=== PATIENT | female | born 1955 | race Caucasian/White ===

== ENCOUNTER → 2019-04-04 | Outpatient (CLI) | payer OTHER ==
[~2019-04-04] MED LIST: AUGMENTIN 875875 MG PO; DICLOFENAC SODI75 MG PO; LYRICA 50 MG50 MG PO; PAXIL20 MG PO; TENORMIN25 MG PO; XANAX1 MG PO; ZANAFLEX4 MG PO
== END ==
LOC: M.ULTRA 13:41
DX: N64.4 Mastodynia (principal)

== ENCOUNTER 2019-06-16 17:12 | Emergency (ER) | payer OTHER ==
[~2019-06-16] VITALS: Ht 152.4 cm; Wt 103.0 kg
[2019-06-16] MEDS ORDERED: BUSPAR30 MG PO (17:22)
[2019-06-16 17:59] LABS: ABSOLUTE BASOPHILS 0.1 thou/uL (0.0-0.2); ABSOLUTE LYMPHOCYTES 1.9 thou/uL (0.8-5.3); ABSOLUTE MONOCYTES 0.7 thou/uL (0.0-1.2); ABSOLUTE NEUTROPHILS 5.2 thou/uL (1.6-8.1); BASOPHILS 0.9 %; HEMATOCRIT 43.4 % (37.0-47.0); HEMOGLOBIN 14.6 gm/dL (12.0-15.0); LYMPHOCYTES 23.5 %; MCH 29.3 pg (26.0-34.0); MCHC 33.7 g/dL (28.0-37.0); MCV 86.9 fL (80.0-100.0); MONOCYTES 9.3 %; MPV 7.4 fl. (7.2-11.1); NUCLEATED RBCS 0 /100WBC; PLATELET COUNT* 295 thou/uL (150-400); POLYS 66.3 %; WBC 7.9 thou/uL (4.0-11.0)
[2019-06-16 18:08] LABS: CALCIUM 8.9 mg/dL (8.5-10.1); CREATININE 0.9 mg/dL (0.6-1.3); POTASSIUM 3.7 mmol/L (3.5-5.1)
[2019-06-16 18:18] LABS: ALBUMIN 3.5 g/dL (3.4-5.0); TOTAL BILIRUBIN 0.5 mg/dL (<0.1-1.0); TOTAL PROTEIN 7.6 g/dL (6.4-8.2)
[2019-06-16 19:08] LABS: URINE BILIRUBIN NEGATIVE (Negative); URINE BLOOD TRACE (Negative); URINE CLARITY CLEAR; URINE COLOR YELLOW; URINE GLUCOSE-RANDOM NEGATIVE (Negative); URINE KETONES NEGATIVE (Negative); URINE LEUKOCYTES-REFLEX NEGATIVE (Negative); URINE NITRITE-REFLEX NEGATIVE (Negative); URINE PROTEIN NEGATIVE (Negative); URINE SPECIFIC GRAVITY <= 1.005 (1.005-1.030); URINE UROBILINOGEN 0.2 E.U./dl (0.2-1.0)
[2019-06-16 19:26] LABS: INFLUENZA A ANTIGEN Negative (Negative); INFLUENZA B ANTIGEN Negative (Negative)
[2019-06-16] MEDS ORDERED: NORCO 5-325 TA1 EAC1 PO (21:04)
[2019-06-16] MEDS ORDERED: PHENERGAN 25 MG25 M1 PO (21:04)
[2019-06-16] MEDS ORDERED: AUGMENTIN 875-1 EACH PO (21:04)
[2019-06-16] MEDS ORDERED: PROMS25 WY RECTAL (21:04)
[2019-06-16 21:40] VITALS: BP 151/71
--- NOTE | 2019-06-17 10:58 | EKG ---
[place] [address] ELECTROCARDIOGRAM REPORT Name: MARTINA LAN Room: [facility]#: [id number] Admission: 06/16/19 Attend Phys: Discharge: 06/16/19 Date of : 57 Date of Service: 06/16/19 175 Report #: [id number] THIS REPORT FOR: //name// [facility] ED Test Date: 2019-06-16 Test Time: 17:57:14 Pat Name: MARTINA LAN Department: Room: Gender: [employer]: : 1955 Requested By: Zamzam Osullivan Order Number: [id number] MD: Sonu Jurado Measurements Intervals [place] Rate: 74 P: 46 TN: 163 QRS: 16 QRSD: 81 T: 38 QT: 404 QTc: 449 Interpretive Statements Sinus rhythm Abnormal R-wave progression, early transition Borderline T abnormalities, anterior leads Compared to ECG 08/24/2016 23:11:38 Sinus bradycardia no longer present Left ventricular hypertrophy no longer present T-wave abnormality still present Electronically Signed On 06-17-2019 10:56:53 CDT by Sonu Jurado [email or web address] <ELECTRONICALLY SIGNED> By: Sonu Jurado MD, FACC 06/17/19 1056 1757 1757 Sonu Jurado MD, FAC /EPI
== END 2019-06-16 21:40 | disposition home or self-care (01) ==
LOC: M.ERS 17:12
PROVIDERS: Nurse Practitioner Family
DX: K52.9 Noninfective gastroenteritis and colitis, unspecified (principal); R11.2 Nausea with vomiting, unspecified; M79.7 Fibromyalgia; M19.90 Unspecified osteoarthritis, unspecified site; M06.9 Rheumatoid arthritis, unspecified; G47.30 Sleep apnea, unspecified; Z88.2 Allergy status to sulfonamides; Z88.8 Allergy status to other drugs, medicaments and biological substances